=== PATIENT | male | born 1970 | race Two or more races ===

== ENCOUNTER 2017-04-18 10:23 | Inpatient (IN) | payer OTHER ==
[2017-04-18 12:51] VITALS: BMI 19.2
--- NOTE | 2017-04-18 17:03 | HP ---
CIWA Score - CIWA Score Nausea/Vomitin-No Nausea/No Vomiting Muscle Tremors: 4-Moderate,w/Arms Extend Anxiety: 4-Mod. Anxious/Guarded Agitation: 3 Paroxysmal Sweats: 1-Minimal Palms Moist Orientation: 0-Oriented Tacttile Disturbances: 2-Mild Itch/Numbness/Burn Auditory Disturbances: 0-None Visual Disturbances: 0-None Headache: 2-Mild CIWA-Ar Total Score: 16 Admission ROS BHS - HPI Chief Complaint: DETOX TX FOR ALCOHOL DEPENDENCE Allergies/Adverse Reactions: Allergies Allergy/AdvReac Type Severity Reaction Status Date / Time No Known Allergies Allergy Verified 04/18/17 14:35 History of Present Illness: 46 Y/O H/M WITH A HX OF ALCOHOL,COCAINE AND MARIJUANA DEPENDENCE SEEKING DETOX TX Exam Limitations: No Limitations - Ebola screening Have you traveled outside of the country in the last 21 days: No Have you had contact with anyone from an Ebola affected area: No Have you been sick,other than usual withdrawal symptoms: No Do you have a fever: No - Review of Systems Constitutional: Chills, Loss of Appetite, Changes in sleep, Unintentional Wgt. Loss EENT: reports: Blurred Vision Respiratory: reports: No Symptoms reported Cardiac: reports: Chest Pain GI: reports: Diarrhea, Nausea, Poor Appetite, Poor Fluid Intake, Vomiting, Abdominal cramping : reports: No Symptoms Reported Musculoskeletal: reports: Joint Pain, Muscle Pain Integumentary: reports: No Symptoms Reported Neuro: reports: Headache, Tremors, Unsteady Gait Endocrine: reports: No Symptoms Reported Hematology: reports: No Symptoms Reported Psychiatric: reports: Orientated x3, Anxious, Depressed (BUT NO PSYCH TX.) Other Systems: Reviewed and Negative Patient History - Patient Medical History Hx Anemia: No Hx Asthma: No Hx Chronic Obstructive Pulmonary Disease (COPD): No Hx Cardiac Disorders: No Hx Hypertension: No Hx Hypercholesterolemia: No HX Cerebrovascular Accident: No Hx Seizures: No Hx Diabetes: No Hx Gastrointestinal Disorders: No Hx Genitourinary Disorders: No Hx Sexually Transmitted Disorders: No Hx Renal Disease (ESRD): No Hx Thyroid Disease: No Hx Human Immunodeficiency Virus (HIV): No (NEGATIVE HX) Hx Hepatitis C: No Hx Depression: Yes (REQUESTS EVALUATION) Hx Suicide Attempt: No (DENIES) Hx Bipolar Disorder: No Hx Schizophrenia: No - Patient Surgical History Past Surgical History: No Hx Neurologic Surgery: No Hx Cataract Extraction: No Hx Cardiac Surgery: No Hx Lung Surgery: No Hx Breast Surgery: No Hx Breast Biopsy: No Hx Abdominal Surgery: No Hx Appendectomy: No Hx Cholecystectomy: No Hx Genitourinary Surgery: No Hx Orthopedic Surgery: No Anesthesia Reaction: No - PPD History Previous Implant?: Yes Documented Results: Negative w/o proof Implanted On Prior [facility] Admission?: No PPD to be Administered?: Yes - Reproductive History Patient is a Female of Child Bearing Age (11 -55 yrs old): No (MALE) Patient : (N/A) - Smoking Cessation Smoking history: Current every day smoker Have you smoked in the past 12 months: Yes Aproximately how many cigarettes per day: 10 Hx Chewing Tobacco Use: No Initiated information on smoking cessation: Yes 'Breaking Loose' booklet given: 04/18/17 - Substance & Tx. History Hx Alcohol Use: Yes (BEER/RUM/WHISKY) Hx Substance Use: Yes (CRACK/MARIJUANA/PCP) Substance Use Type: Alcohol, Cocaine, Marijuana - Substances Abused Crack Route: Smoking Frequency: Daily Amount used: $50-100 Age of first use: 32 Date of Last Use: 04/16/17 PCP Route: Smoking Frequency: 1-3 times last 30 days Amount used: $10 Age of first use: 45 Date of Last Use: 04/11/17 Alcohol-beer/rum/whisky Route: Oral Frequency: Daily Amount used: 3-4 6 pks./1 pt. Age of first use: 9 Date of Last Use: 04/17/17 Marijuana Route: Smoking Frequency: 3-6 times per week Amount used: $10 Age of first use: 12 Date of Last Use: 04/17/17 Family Disease History - Family Disease History Family Disease History: Heart Disease: Father, Mother, Brother Admission Physical Exam BHS - Vital Signs Vital Signs: Vital Signs - 24 hr 04/18/17 12:49 Temperature 99.5 F Pulse Rate 70 Respiratory 18 Rate Blood Pressure 114/70 - Physical General Appearance: Yes: Irritable, Anxious HEENTM: Yes: EOMI, Normocephalic, [place], Pharynx Normal Respiratory: Yes: Chest Non-Tender, Lungs Clear, Normal Breath Sounds, No Respiratory Distress Neck: Yes: No masses,lesions,Nodules, Supple, Trachea in good position Breast: Yes: Breast Exam Deferred Cardiology: Yes: Regular Rhythm, Regular Rate, S1, S2 Abdominal: Yes: Normal Bowel Sounds, Non Tender, Flat, Soft Genitourinary: Yes: Other (N/C) Back: Yes: Within Normal Limits Musculoskeletal: Yes: full range of Motion, Gait Steady Extremities: Yes: Normal Range of Motion, Non-Tender Neurological: Yes: resident advisor II-XII NML intact, Fully Oriented, Alert, Motor Strength 5/5 Integumentary: Yes: Dry, Warm Lymphatic: Yes: Within Normal Limits - Diagnostic (1) Alcohol dependence with uncomplicated withdrawal Current Visit: Yes Status: Acute (2) Cocaine dependence, uncomplicated Current Visit: Yes Status: Acute (3) Cannabis dependence, uncomplicated Current Visit: Yes Status: Acute (4) PCP dependence Current Visit: Yes Status: Acute Cleared for Admission [facility] - Detox or Rehab [facility] Level of Care: Medically Managed Detox Regimen/Protocol: Librium S Breath Alcohol Content Breath Alcohol Content: 0 Urine Drug Screen - Results Drug Screen Negative: No Urine Drug Screen Results: THC-Marijuana, ADIA-Cocaine, PCP-Phencyclidine
[2017-04-18] MEDS ORDERED: chlordiazePOXIDE HCL 25 MG CAPSULE PO PRN (17:17)
[2017-04-18] MEDS ORDERED: P-EPHED 60MG/TRIPROLIDI 2.5MG TABLET PO PRN (17:17)
[2017-04-18] MEDS ORDERED: IBUPROFEN 400 MG TABLET (FP) PO PRN (17:17)
[2017-04-18] MEDS ORDERED: MENTHOL/PHENOL 1 EACH UD MM PRN (17:17)
[2017-04-18] MEDS ORDERED: NICOTINE POLACRILEX 2 MG GUM BC PRN (17:17)
[2017-04-18] MEDS ORDERED: chlordiazePOXIDE HCL 25 MG CAPSULE PO ONE (17:17)
[2017-04-18] MEDS ORDERED: MAG HYDROX/AL HYDROX/SIMETH 30 ML UNIT-DOSE CUP PO PRN (17:17)
[2017-04-18] MEDS ORDERED: MAGNESIUM HYDROX 2400MG/30ML ORAL SUSPENSION 30 ML CUP PO PRN (17:17)
[2017-04-18] MEDS ORDERED: ACETAMINOPHEN 325 MG TABLET (FP) PO PRN (17:17)
[2017-04-18] MEDS ORDERED: LOPERAMIDE HCL 2 MG CAPSULE PO PRN (17:17)
[2017-04-18] MEDS ORDERED: guaiFENesin/D-METHORPHAN HB 10 ML UNIT-DOSE CUPS PO PRN (17:17)
[2017-04-18] MEDS ORDERED: MAGNESIUM CITRATE 300 ML BOTTLE PO PRN (17:17)
[2017-04-18] MEDS ORDERED: hydrOXYzine PAMOATE 50 MG CAPSULE (FP) PO PRN (17:17)
[2017-04-18] MEDS: NICOTINE 14 MG/24 HOURS TOPICAL PATCH TD SCH (19:02)
[2017-04-18 21:13] LABS: URINE APPEARANCE SLCLOUDY; URINE BILIRUBIN NEGATIVE (NEGATIVE); URINE BLOOD NEGATIVE (NEGATIVE); URINE COLOR YELLOW; URINE GLUCOSE (UA) NEGATIVE (NEGATIVE); URINE KETONE NEGATIVE (NEGATIVE); URINE NITRITE NEGATIVE (NEGATIVE); URINE PROTEIN NEGATIVE (NEGATIVE); URINE UROBILINOGEN NEGATIVE mg/dL (0.2-1.0)
[2017-04-18 21:19] LABS: URINE LEUK ESTERASE 3+ (NEGATIVE)
[2017-04-18 21:31] LABS: CALCIUM OXALATE CRYSTALS MODERATE /hpf (NONE SEEN); URINE BACTERIA FEW /hpf (NONE SEEN); URINE MUCUS FEW; URINE RBC 5 /hpf (0-3); URINE WBC 74 /hpf (3-5)
[2017-04-18] MEDS: THIAMINE HCL 100 MG TABLET (FP) PO SCH (22:33)
[2017-04-18] MEDS: diphenhydrAMINE HCL 50 MG CAPSULE PO PRN (22:33)
[2017-04-18] MEDS: chlordiazePOXIDE HCL 25 MG CAPSULE PO SCH (22:33)
[2017-04-19] MEDS: chlordiazePOXIDE HCL 25 MG CAPSULE PO SCH ×4 (06:26→22:54)
--- NOTE | 2017-04-19 09:30 | EKG ---
Test Reason : Blood Pressure : / mmHG Vent. Rate : 070 BPM Atrial Rate : 070 BPM P-R Int : 164 ms QRS Dur : 086 ms QT Int : 382 ms P-R-T Axes : 082 076 069 degrees QTc Int : 412 ms NORMAL SINUS RHYTHM VOLTAGE CRITERIA FOR LEFT VENTRICULAR HYPERTROPHY EARLY REPOLARIZATION NONSPECIFIC T WAVE ABNORMALITY ABNORMAL ECG NO PREVIOUS ECGS AVAILABLE Confirmed by MD COREY, GAGE ([id number]) on 04/19/2017 9:30:15 AM Referred By: Confirmed By:GAGE NICOLE MD
[2017-04-19] MEDS: PRENATAL VITAMINS W/ FOLIC ACID TABLET (FP) PO SCH (10:45)
[2017-04-19] MEDS: NICOTINE 14 MG/24 HOURS TOPICAL PATCH TD SCH (10:47)
[2017-04-19 11:02] LABS: MCH 31.1 pg (25.7-33.7); MCHC 33.9 g/dl (32.0-35.9); MEAN CELL VOLUME 91.7 fl (80-96); MEAN PLT VOLUME 8.5 fl (7.5-11.1); PLATELET COUNT 271 K/MM3 (134-434); WHITE BLOOD COUNT 6.8 K/mm3 (4.0-10.0)
[2017-04-19 11:17] LABS: ALBUMIN 3.9 g/dl (3.4-5.0); ALK PHOS 80 U/L (45-117); ANION GAP 11 (8-16); BILIRUBIN,TOTAL 0.7 mg/dL (0.2-1.0); CALCIUM 8.9 mg/dL (8.5-10.1); CO2 24 mmol/L (21-32); CREATININE 1.1 mg/dL (0.7-1.3); GLUCOSE,RANDOM 120 mg/dL (74-106); SGOT/AST 12 U/L (15-37); SGPT/ALT 19 U/L (12-78); TOT PROT 6.9 g/dl (6.4-8.2)
[2017-04-19 13:11] LABS: SICKLE CELL SCREEN NEGATIVE (NEGATIVE)
--- NOTE | 2017-04-19 18:53 | CONSULT ---
[facility] Psychiatric Consult - Data Date of interview: 04/19/17 Admission source: [facility] Identifying data: First admission to [facility] for this 46 y/o male seeking detox treatment on for alcohol,cocaine (crack) and marihuana dependence.Patient is single,a father of six,homeless,unemployed and supported on food stamps. Substance Abuse History: Discussed with the patient in this interview. Smoking Cessation. Smoking history: Current every day smoker. Have you smoked in the past 12 months: Yes. Aproximately how many cigarettes per day: 10. Hx Chewing Tobacco Use: No. Initiated information on smoking cessation: Yes. 'Breaking Loose' booklet given: 04/18/17. - Substance & Tx. History. Hx Alcohol Use: Yes (BEER/RUM/WHISKY). Hx Substance Use: Yes (CRACK/MARIJUANA/PCP). Substance Use Type: Alcohol, Cocaine, Marijuana. - Substances Abused. Crack. Route: Smoking. Frequency: Daily. Amount used: $50-100. Age of first use: 32. Date of Last Use: 04/16/17. PCP. Route: Smoking. Frequency: 1-3 times last 30 days. Amount used: $10. Age of first use: 45. Date of Last Use: 04/11/17. * * Alcohol-beer/rum/whisky. Route: Oral. Frequency: Daily. Amount used: 3-4 6 pks./1 pt. Age of first use: 9. Date of Last Use: 04/17/17. Marijuana. Route: Smoking. Frequency: 3-6 times per week. Amount used: $10. Age of first use: 12. Date of Last Use: 04/17/17 Medical History: Patient endorses good general health. Psychiatric History: Patient denies. Physical/Sexual Abuse/Trauma History: Patient denies. Additional Comment: Urine Drug Screen Results: THC-Marijuana, ADIA-Cocaine, PCP- Phencyclidine.Noted. Mental Status Exam - Mental Status Exam Alert and Oriented to: Time, Place, Person Cognitive Function: Good Patient Appearance: Disheveled Mood: Nervous, Withdrawn Affect: Mood Congruent Patient Behavior: Fatigued, Cooperative Speech Pattern: Clear Voice Loudness: Normal Thought Process: Goal Oriented Thought Disorder: Not Present Hallucinations: Denies Suicidal Ideation: Denies Homicidal Ideation: Denies Insight/Judgement: Poor Sleep: Poorly, Difficulty falling asleep Appetite: Good Muscle strength/Tone: Normal Gait/Station: Normal Psychiatric Findings - Problem List ([place] 1, 2,3) (1) Alcohol dependence with uncomplicated withdrawal Current Visit: Yes Status: Acute (2) Cannabis dependence, uncomplicated Current Visit: Yes Status: Acute (3) Cocaine dependence, uncomplicated Current Visit: Yes Status: Acute (4) PCP dependence Current Visit: Yes Status: Acute (5) Nicotine dependence Current Visit: Yes Status: Acute (6) Insomnia Current Visit: Yes Status: Acute - Initial Treatment Plan Initial Treatment Plan: Psychoeducation.Detoxification is under way.Ambien 10 mg po hs prn.Patient is made aware of potential for parasomnias.He is in agreement with this careplan.Observation.
[2017-04-19] MEDS ORDERED: ZOLPIDEM TARTRATE 5 MG TABLET PO PRN (19:00)
--- NOTE | 2017-04-19 19:03 | PN ---
S CIWA - CIWA Score Nausea/Vomitin Muscle Tremors: 3 Anxiety: 4-Mod. Anxious/Guarded Agitation: 2 Paroxysmal Sweats: 2 Orientation: 0-Oriented Tacttile Disturbances: 3-Moderate Itch/Numb/Burn Auditory Disturbances: 2-Mild Harshness/Frighten Visual Disturbances: 0-None Headache: 0-None Present CIWA-Ar Total Score: 18 BHS Progress Note (SOAP) Subjective: Interrupted Sleep, Fatigue, Sweating. Objective: PT. A & O X 3. NO ACUTE DISTRESS. 04/19/17 19:00 Vital Signs Temperature 97.7 F 04/19/17 18:16 Pulse Rate 88 04/19/17 18:16 Respiratory Rate 18 04/19/17 18:16 Blood Pressure 106/68 04/19/17 18:16 O2 Sat by Pulse Oximetry (%) Laboratory Tests 04/18/17 04/19/17 04/19/17 20:00 06:00 06:00 WBC 6.8 RBC 5.10 Hgb 15.9 Hct 46.7 MCV 91.7 MCH 31.1 MCHC 33.9 RDW 14.0 Plt Count 271 MPV 8.5 Sickle Cell Screen Negative Sodium 140 Potassium 3.9 Chloride 105 Carbon Dioxide 24 Anion Gap 11 BUN 11 Creatinine 1.1 Creat Clearance w eGFR > 60 Random Glucose 120 H Calcium 8.9 Total Bilirubin 0.7 AST 12 L ALT 19 Alkaline Phosphatase 80 Total Protein 6.9 Albumin 3.9 Urine Color Yellow Urine Appearance Slcloudy Urine pH 5.0 Ur Specific [place] >= 1.030 H Urine Protein Negative Urine Glucose (UA) Negative Urine Ketones Negative Urine Blood Negative Urine Nitrite Negative Urine Bilirubin Negative Urine Urobilinogen Negative Ur Leukocyte Esterase 3+ H Urine RBC 5 Urine WBC 74 Calcium Oxalate Crystal Moderate Urine Bacteria Few Urine Mucus Few LABS NOTED. RPR RESULT NOTED. 04/19/17 19:02 Assessment: 04/19/17 19:01 WITHDRAWAL SYMPTOMS. Plan: CONTINUE DETOX. REPEAT UA WITH URINE C + S FOR ADMISSION UA ABNORMALITIES.
[2017-04-19] MEDS: THIAMINE HCL 100 MG TABLET (FP) PO SCH (22:54)
[2017-04-19] MEDS: diphenhydrAMINE HCL 50 MG CAPSULE PO PRN (22:55)
[2017-04-20] MEDS: chlordiazePOXIDE HCL 25 MG CAPSULE PO SCH ×3 (05:41→17:28)
[2017-04-20] MEDS: PRENATAL VITAMINS W/ FOLIC ACID TABLET (FP) PO SCH (10:32)
[2017-04-20] MEDS: NICOTINE 14 MG/24 HOURS TOPICAL PATCH TD SCH (10:33)
--- NOTE | 2017-04-20 15:06 | PN ---
S CIWA - CIWA Score Nausea/Vomitin-Mild Nausea/No Vomiting Muscle Tremors: 3 Anxiety: 4-Mod. Anxious/Guarded Agitation: 4-Moderately Restless Paroxysmal Sweats: No Perspiration Orientation: 0-Oriented Tacttile Disturbances: 1-Very Mild Itch/Numbness Auditory Disturbances: 0-None Visual Disturbances: 0-None Headache: 3-Moderate CIWA-Ar Total Score: 16 BHS Progress Note (SOAP) Subjective: Sweating, chills, tremor, nausea, headache, tactile disturbance Objective: 04/20/17 15:04 Last Vital Signs Temp Pulse Resp BP Pulse Ox 96.4 F L 88 18 100/72 04/20/17 13:22 04/20/17 13:22 04/20/17 13:22 04/20/17 13:22 Laboratory Tests 04/18/17 04/19/17 04/19/17 20:00 06:00 06:00 WBC 6.8 RBC 5.10 Hgb 15.9 Hct 46.7 MCV 91.7 MCH 31.1 MCHC 33.9 RDW 14.0 Plt Count 271 MPV 8.5 Sickle Cell Screen Negative Sodium 140 Potassium 3.9 Chloride 105 Carbon Dioxide 24 Anion Gap 11 BUN 11 Creatinine 1.1 Creat Clearance w eGFR > 60 Random Glucose 120 H Calcium 8.9 Total Bilirubin 0.7 AST 12 L ALT 19 Alkaline Phosphatase 80 Total Protein 6.9 Albumin 3.9 Urine Color Yellow Urine Appearance Slcloudy Urine pH 5.0 Ur Specific [place] >= 1.030 H Urine Protein Negative Urine Glucose (UA) Negative Urine Ketones Negative Urine Blood Negative Urine Nitrite Negative Urine Bilirubin Negative Urine Urobilinogen Negative Ur Leukocyte Esterase 3+ H Urine RBC 5 Urine WBC 74 Calcium Oxalate Crystal Moderate Urine Bacteria Few Urine Mucus Few RPR Titer 04/19/17 06:00 WBC RBC Hgb Hct MCV MCH MCHC RDW Plt Count MPV Sickle Cell Screen Sodium Potassium Chloride Carbon Dioxide Anion Gap BUN Creatinine Creat Clearance w eGFR Random Glucose Calcium Total Bilirubin AST ALT Alkaline Phosphatase Total Protein Albumin Urine Color Urine Appearance Urine pH Ur Specific [place] Urine Protein Urine Glucose (UA) Urine Ketones Urine Blood Urine Nitrite Urine Bilirubin Urine Urobilinogen Ur Leukocyte Esterase Urine RBC Urine WBC Calcium Oxalate Crystal Urine Bacteria Urine Mucus RPR Titer Nonreactive Labs noted: abnormal UA Assessment: 04/20/17 15:05 Withdrawal symptoms Noted with abnormal UA Plan: Continue detox Abnormal UA: encouraged to drink lots of water, repeat UA
[2017-04-20] MEDS: diphenhydrAMINE HCL 50 MG CAPSULE PO PRN (22:33)
[2017-04-20] MEDS: THIAMINE HCL 100 MG TABLET (FP) PO SCH (22:33)
[2017-04-20] MEDS: chlordiazePOXIDE 5 MG CAPSULE PO SCH (22:33)
[2017-04-21] MEDS: chlordiazePOXIDE 5 MG CAPSULE PO SCH ×3 (05:14→17:33)
[2017-04-21] MEDS: PRENATAL VITAMINS W/ FOLIC ACID TABLET (FP) PO SCH (10:32)
[2017-04-21] MEDS: NICOTINE 14 MG/24 HOURS TOPICAL PATCH TD SCH (10:33)
--- NOTE | 2017-04-21 10:48 | PN ---
BHS Progress Note (SOAP) Subjective: nausa, sweats, interrupted sleep, anxiety, tremors Objective: 04/21/17 10:47 Vital Signs - 8 hr 04/21/17 04/21/17 04/21/17 03:37 06:25 09:12 Temperature 96.4 F L 96.6 F L Pulse Rate 79 79 Respiratory 18 18 18 Rate Blood Pressure 102/61 109/72 Laboratory Tests 04/18/17 04/19/17 04/19/17 20:00 06:00 06:00 WBC 6.8 RBC 5.10 Hgb 15.9 Hct 46.7 MCV 91.7 MCH 31.1 MCHC 33.9 RDW 14.0 Plt Count 271 MPV 8.5 Sickle Cell Screen Negative Sodium 140 Potassium 3.9 Chloride 105 Carbon Dioxide 24 Anion Gap 11 BUN 11 Creatinine 1.1 Creat Clearance w eGFR > 60 Random Glucose 120 H Calcium 8.9 Total Bilirubin 0.7 AST 12 L ALT 19 Alkaline Phosphatase 80 Total Protein 6.9 Albumin 3.9 Urine Color Yellow Urine Appearance Slcloudy Urine pH 5.0 Ur Specific [place] >= 1.030 H Urine Protein Negative Urine Glucose (UA) Negative Urine Ketones Negative Urine Blood Negative Urine Nitrite Negative Urine Bilirubin Negative Urine Urobilinogen Negative Ur Leukocyte Esterase 3+ H Urine RBC 5 Urine WBC 74 Calcium Oxalate Crystal Moderate Urine Bacteria Few Urine Mucus Few RPR Titer 04/19/17 06:00 WBC RBC Hgb Hct MCV MCH MCHC RDW Plt Count MPV Sickle Cell Screen Sodium Potassium Chloride Carbon Dioxide Anion Gap BUN Creatinine Creat Clearance w eGFR Random Glucose Calcium Total Bilirubin AST ALT Alkaline Phosphatase Total Protein Albumin Urine Color Urine Appearance Urine pH Ur Specific [place] Urine Protein Urine Glucose (UA) Urine Ketones Urine Blood Urine Nitrite Urine Bilirubin Urine Urobilinogen Ur Leukocyte Esterase Urine RBC Urine WBC Calcium Oxalate Crystal Urine Bacteria Urine Mucus RPR Titer Nonreactive Assessment: 04/21/17 10:47 withdrawal sx Plan: cont detox, fluids
[2017-04-21 19:37] LABS: URINE APPEARANCE CLEAR; URINE BILIRUBIN NEGATIVE (NEGATIVE); URINE BLOOD NEGATIVE (NEGATIVE); URINE COLOR LT. YELLOW; URINE GLUCOSE (UA) NEGATIVE (NEGATIVE); URINE KETONE NEGATIVE (NEGATIVE); URINE NITRITE NEGATIVE (NEGATIVE); URINE PROTEIN NEGATIVE (NEGATIVE); URINE UROBILINOGEN 0.2 mg/dL (0.2-1.0)
[2017-04-21] MEDS: THIAMINE HCL 100 MG TABLET (FP) PO SCH (22:26)
[2017-04-21] MEDS: chlordiazePOXIDE HCL 10 MG CAPSULE PO SCH (22:26)
[2017-04-22] MEDS: chlordiazePOXIDE HCL 10 MG CAPSULE PO SCH ×2 (05:49→10:10)
[2017-04-22 06:32] VITALS: BP 111/78; PULSE 85; TEMP 97
--- NOTE | 2017-04-22 09:57 | DS ---
[facility] Detox Discharge Summary Admission Date: 04/18/17 Discharge Date: 04/22/17 - History Present History: Alcohol Dependence Additional Comments: DETOX COMPLETED. ALERT O X 3. NAD. PT INSTRUCTED TO FOLLOW UP WITH HIS PMD AT [facility]. Pertinent Past History: INSOMNIA - Physical Exam Results Vital Signs: Vital Signs Temperature 97 F L 04/22/17 06:32 Pulse Rate 85 04/22/17 06:32 Respiratory Rate 18 04/22/17 06:32 Blood Pressure 111/78 04/22/17 06:32 O2 Sat by Pulse Oximetry (%) Pertinent Admission Physical Exam Findings: WITHDRAWAL SX Laboratory Last Values Laboratory Last Values WBC 6.8 K/mm3 (4.0-10.0) 04/19/17 06:00 RBC 5.10 M/mm3 (4.00-5.60) 04/19/17 06:00 Hgb 15.9 GM/dL (11.7-16.9) 04/19/17 06:00 Hct 46.7 % (35.4-49) 04/19/17 06:00 MCV 91.7 fl (80-96) 04/19/17 06:00 MCH 31.1 pg (25.7-33.7) 04/19/17 06:00 MCHC 33.9 g/dl (32.0-35.9) 04/19/17 06:00 RDW 14.0 % (11.9-15.9) 04/19/17 06:00 Plt Count 271 K/MM3 (134-434) 04/19/17 06:00 MPV 8.5 fl (7.5-11.1) 04/19/17 06:00 Sickle Cell Screen Negative (NEGATIVE) 04/19/17 06:00 Sodium 140 mmol/L (136-145) 04/19/17 06:00 Potassium 3.9 mmol/L (3.5-5.1) 04/19/17 06:00 Chloride 105 mmol/L (98-107) 04/19/17 06:00 Carbon Dioxide 24 mmol/L (21-32) 04/19/17 06:00 Anion Gap 11 (8-16) 04/19/17 06:00 BUN 11 mg/dL (7-18) 04/19/17 06:00 Creatinine 1.1 mg/dL (0.7-1.3) 04/19/17 06:00 Creat Clearance w eGFR > 60 (>60) 04/19/17 06:00 Random Glucose 120 mg/dL (74-106) H 04/19/17 06:00 Calcium 8.9 mg/dL (8.5-10.1) 04/19/17 06:00 Total Bilirubin 0.7 mg/dL (0.2-1.0) 04/19/17 06:00 AST 12 U/L (15-37) L 04/19/17 06:00 ALT 19 U/L (12-78) 04/19/17 06:00 Alkaline Phosphatase 80 U/L (45-117) 04/19/17 06:00 Total Protein 6.9 g/dl (6.4-8.2) 04/19/17 06:00 Albumin 3.9 g/dl (3.4-5.0) 04/19/17 06:00 Urine Color Lt. yellow 04/21/17 14:00 Urine Appearance Clear 04/21/17 14:00 Urine pH 8.0 (5.0-8.0) D 04/21/17 14:00 Ur Specific [place] 1.015 (1.005-1.025) 04/21/17 14:00 Urine Protein Negative (NEGATIVE) 04/21/17 14:00 Urine Glucose (UA) Negative (NEGATIVE) 04/21/17 14:00 Urine Ketones Negative (NEGATIVE) 04/21/17 14:00 Urine Blood Negative (NEGATIVE) 04/21/17 14:00 Urine Nitrite Negative (NEGATIVE) 04/21/17 14:00 Urine Bilirubin Negative (NEGATIVE) 04/21/17 14:00 Urine Urobilinogen 0.2 mg/dL (0.2-1.0) 04/21/17 14:00 Ur Leukocyte Esterase 3+ (NEGATIVE) H 04/18/17 20:00 Urine RBC 5 /hpf (0-3) 04/18/17 20:00 Urine WBC 74 /hpf (3-5) 04/18/17 20:00 Calcium Oxalate Crystal Moderate /hpf (NONE SEEN) 04/18/17 20:00 Urine Bacteria Few /hpf (NONE SEEN) 04/18/17 20:00 Urine Mucus Few 04/18/17 20:00 RPR Titer Nonreactive (NONREACTIVE) 04/19/17 06:00 Microbiology 04/21/17 21:20 Urine Culture - Final Urine - Urine Clean Catch NO GROWTH OBTAINED CXR RESULT: CLEAR LUNGS. - Treatment Hospital Course: Detox Protocol Followed, Detoxed Safely, Responded well, Discharged Condition Good, Rehab Referral Accepted Patient has Accepted a Rehab Referral to: [facility] - Medication Discharge Medications: Ambulatory Orders NK [No Known Home Medication] 04/18/17 - Diagnosis (1) Alcohol dependence with uncomplicated withdrawal Status: Acute (2) Cocaine dependence, uncomplicated Status: Acute (3) Cannabis dependence, uncomplicated Status: Acute (4) PCP dependence Status: Acute - AMA Did Patient Leave Against Medical Advice: No
[2017-04-22] MEDS: PRENATAL VITAMINS W/ FOLIC ACID TABLET (FP) PO SCH (10:09)
[2017-04-22] MEDS: NICOTINE 14 MG/24 HOURS TOPICAL PATCH TD SCH (10:09)
== END 2017-04-22 13:20 | disposition home or self-care (01) | DRG 774 ==
LOC: YASAS 10:23 → Y3N 16:00
PROVIDERS: ADMIT Internal Medicine Addiction Medicine; ATTEND Internal Medicine Addiction Medicine
PROC: HZ2ZZZZ Detoxification Services for Substance Abuse Treatment (ICD-10-PCS; principal; 2017-04-18)
DX: F10.230 Alcohol dependence with withdrawal, uncomplicated (principal); F14.20 Cocaine dependence, uncomplicated; F12.20 Cannabis dependence, uncomplicated; F16.20 Hallucinogen dependence, uncomplicated; F17.210 Nicotine dependence, cigarettes, uncomplicated; G47.00 Insomnia, unspecified; R82.90 Unspecified abnormal findings in urine
CPT/HCPCS: 36415; 71020-TC; 80053; 81003; 81015; 85027; 85660; 86593; 87086; 93005; 93010